=== PATIENT | female | born 1970 | race Caucasian/White ===

== ENCOUNTER → 2017-01-24 | Outpatient (CLI) | payer OTHER ==
[2015-08-22 07:18] VITALS: BP 140/61
--- NOTE | 2017-01-24 09:07 | KCIC ---
LUMBAR SPINE 2-3V History: Right side sciatica pain for 8 months Comparison: None. Findings: 3 views of the lumbar spine are submitted. There is mild lumbar levoscoliosis. Lumbar vertebral body stature and AP alignment are adequate. There is multilevel mild spondylosis L2-3 through L5-S1. There is mild narrowing of the L5-S1 intervertebral disc space. Impression: 1. There is mild degenerative disc disease L5-S1. There is multilevel mild spondylosis. There is mild lumbar levoscoliosis. Electronically signed by: Ayden Owens MD (01/24/2017 9:04 AM) [email or web address]
== END | disposition home or self-care (01) ==
LOC: KCIC 08:32
PROVIDERS: ATTEND Nurse Practitioner Family
DX: M51.37 Other intervertebral disc degeneration, lumbosacral region (principal)
CPT/HCPCS: 72100

== ENCOUNTER → 2018-08-05 | Outpatient (CLI) | payer OTHER ==
[2015-08-22 07:18] VITALS: BP 140/61
--- NOTE | 2018-08-05 08:30 | KCIC ---
EXAM: Lumbar spine MRI without contrast. HISTORY: Right-sided sciatica. TECHNIQUE: Multiplanar, multisequence magnetic resonance imaging of the lumbar spine was performed without contrast. COMPARISON: Radiographs dated 01/24/2017. FINDINGS: There is minimal lumbar levocurvature. There is no significant listhesis. The vertebral bodies are normal in height and demonstrate normal marrow signal intensity. There is no suspicious osseous lesion. There is no acute or subacute fracture. There is disc desiccation at L3-L4, L4-L5 and L5-S1. The conus terminates at L1-L2. At L1-L2, there is no stenosis. At L2-L3, there is minimal facet arthropathy. There is no stenosis. At L3-L4, there is a right paracentral disc protrusion and annular tear superimposed on a disc bulge and endplate remodeling. There is abutment of the traversing right L4 nerve root without significant foraminal or central canal stenosis. At L4-L5, there is a shallow broad-based posterior central disc protrusion and annular tear superimposed on a disc bulge and endplate remodeling. There is minimal left facet arthropathy. There is no stenosis. At L5-S1, there is a broad-based right paracentral to lateral recess disc protrusion with inferior extrusion extending 12 mm inferior to the disc space. This is superimposed on a disc bulge and endplate remodeling. There is minimal left foraminal stenosis with abutment or near abutment of the exiting left L5 nerve root. There is effacement of the right lateral recess with deviation of the traversing right S1 nerve root and minimal central canal stenosis. IMPRESSION: 1. L5-S1: Broad-based right paracentral to lateral recess disc protrusion with inferior extrusion superimposed on a disc bulge and endplate remodeling, resulting in effacement of the right lateral recess with deviation of the traversing right S1 nerve root and minimal central canal stenosis. There is also minimal left foraminal stenosis with abutment or near abutment of the exiting left L5 nerve root at this level. 2. L3-L4: Right paracentral disc protrusion superimposed on a disc bulge and endplate remodeling, resulting in abutment of the traversing right L4 nerve root. 3. Mild degenerative change throughout the remainder of the lumbar spine, without significant stenosis. Electronically signed by: Shila Desai MD (08/05/2018 8:27 AM) [facility] [place]
== END | disposition home or self-care (01) ==
LOC: KCIC MRI 07:44
PROVIDERS: ATTEND Nurse Practitioner Family
DX: M51.27 Other intervertebral disc displacement, lumbosacral region (principal); M46.97 Unspecified inflammatory spondylopathy, lumbosacral region
CPT/HCPCS: 72148